=== PATIENT | female | born 1980 | race American Indian/Alaskan Native ===

== ENCOUNTER 2019-11-14 00:58 | Emergency (ER) | payer SELFPAY ==
[2019-11-14 01:11] VITALS: BP 197/85
[2019-11-14 02:07] LABS: BUN/Creatinine Ratio 16; Blood Urea Nitrogen 11 mg/dL (7-17); Calcium 9.2 mg/dL (8.4-10.2); Hemolysis Index 9
[2019-11-14 02:08] LABS: Basophils % (Auto) 0.5 % (0.0-1.8); Eosinophils % (Auto) 0.5 % (0.0-4.3); Hematocrit 33.9 % (30.3-42.9); Hemoglobin 10.9 gm/dl (10.1-14.3); Lymphocytes # (Auto) 2.8 K/mm3 (1.2-5.4); Lymphocytes % (Auto) 35.4 % (13.4-35.0); Mean Corpuscular HGB Conc 32 % (30-34); Mean Corpuscular Volume 81 fl (79-97); Monocytes # (Auto) 0.5 K/mm3 (0.0-0.8); Monocytes % (Auto) 5.9 % (0.0-7.3); Platelet Count 226 K/mm3 (140-440); Red Blood Count 4.19 M/mm3 (3.65-5.03)
[2019-11-14 02:12] LABS: Red Cell Distribution Width 20.7 % (13.2-15.2)
[2019-11-14 02:46] LABS: Bacteria,Urine 1+ /HPF (Negative); Bilirubin,Urine NEG (Negative); Blood,Urine NEG (Negative); Color,Urine Yellow (Yellow); Mucus,Urine 3+ /HPF
[2019-11-14 02:50] LABS: Benzodiazepines Screen,Urine PRESUMPTIVE NEGATIVE; Cannabinoid Screen,Urine PRESUMPTIVE NEGATIVE; Cocaine Screen,Urine PRESUMPTIVE NEGATIVE; Methadone Screen,Urine PRESUMPTIVE NEGATIVE; Opiate Screen,Urine PRESUMPTIVE NEGATIVE
[2019-11-14 03:30] LABS: Amphetamine Screen,Urine PRESUMPTIVE POSITIVE
== END 2019-11-14 02:00 | disposition left against medical advice (07) ==
LOC: ED 00:58
DX: F15.20 Other stimulant dependence, uncomplicated (principal); Z53.21 Procedure and treatment not carried out due to patient leaving prior to being seen by health care provider
CPT/HCPCS: 36415; 80048; 80307; 80320; 81001; 84703; 85025; G0480

== ENCOUNTER 2019-11-14 09:07 | Emergency (ER) | payer SELFPAY ==
[2019-11-14 09:16] VITALS: BP 122/58
--- NOTE | 2019-11-14 09:52 | Emergency Department Report ---
ED General Adult HPI - General Chief complaint: Medical Clearance Stated complaint: DETOX Source: patient Mode of arrival: Ambulatory Limitations: No Limitations - History of Present Illness Initial comments: This is a 39-year-old female that states her last methamphetamine use was 3 days ago. She is a bit guarded about her mental health history. However she was in a partial treatment program 2 years ago she admits. She was prescribed medication for bipolar disorder but is not compliant. She states that she went to an outpatient treatment program and waited 6 hours. Subsequently she was told she would need to go to the emergency department first anyway. That is why she presented earlier. She states that her motivation for going into detox is "to get my son back". Apparently the mother has custody of the son. She states that she needs to complete a 21 day program to get her baby back. She does appear to have pressurized speech. Nursing told me that on repeated questioning regarding suicidal ideation that the patient thought of hurting herself when she lost her baby that today. She states that she is not suicidal now and she's had no persistent thoughts. She states that she's had no history of any suicidal gesture. She denies mental health hospitalization other than the partial treatment program. -: Gradual, days(s) Associated Symptoms: denies other symptoms - Related Data Previous Rx's Medication Instructions Recorded Last Taken Type QUEtiapine [SEROquel] 100 mg PO BID #30 tab 11/14/19 Unknown Rx Allergies Allergy/AdvReac Type Severity Reaction Status Date / Time tramadol Allergy Hives Verified 11/14/19 01:11 ED Review of Systems ROS: Stated complaint: DETOX Other details as noted in HPI Constitutional: denies: chills, fever Eyes: denies: eye pain, eye discharge, vision change ENT: denies: ear pain, throat pain Respiratory: denies: cough, shortness of breath, wheezing Cardiovascular: denies: chest pain, palpitations Endocrine: no symptoms reported Gastrointestinal: denies: abdominal pain, nausea, diarrhea Genitourinary: denies: urgency, dysuria, discharge Musculoskeletal: denies: back pain, joint swelling, arthralgia Skin: denies: rash, lesions Neurological: denies: headache, weakness, paresthesias Psychiatric: other (appears to be somewhat obsessive). denies: anxiety, depression, auditory hallucinations, visual hallucinations, homicidal thoughts, suicidal thoughts (not currently nor recently) Hematological/Lymphatic: denies: easy bleeding, easy bruising ED Past Medical Hx - Past Medical History Previous Medical History?: No - Surgical History Past Surgical History?: Yes Hx Breast Surgery: Yes (reduction) Additional Surgical History: x 2 - Social History Smoking Status: Current Every Day Smoker Substance Use Type: Methamphetamines - Medications Home Medications: Home Medications Medication Instructions Recorded Confirmed Last Taken Type QUEtiapine [SEROquel] 100 mg PO BID #30 tab 11/14/19 Unknown Rx ED Physical Exam - General Limitations: No Limitations General appearance: alert, in no apparent distress - Head Head exam: Present: atraumatic, normocephalic - Eye Eye exam: Present: normal appearance, PERRL, EOMI. Absent: scleral icterus - ENT ENT exam: Present: mucous membranes moist - Neck Neck exam: Present: normal inspection. Absent: tenderness, meningismus - Respiratory Respiratory exam: Present: normal lung sounds bilaterally. Absent: respiratory distress - Cardiovascular Cardiovascular Exam: Present: regular rate, normal rhythm. Absent: systolic murmur, diastolic murmur, rubs, gallop - GI/Abdominal GI/Abdominal exam: Present: soft, normal bowel sounds. Absent: distended, tenderness, guarding, rebound, rigid - Extremities Exam Extremities exam: Present: normal inspection - Back Exam Back exam: Present: normal inspection - Neurological Exam Neurological exam: Present: alert, oriented X3, CN II-XII intact. Absent: motor sensory deficit - Psychiatric Psychiatric exam: Present: manic (somewhat hypomanic, pressured speech). Absent: depressed, agitated, homicidal ideation, suicidal ideation - Skin Skin exam: Present: warm, dry, intact, normal color. Absent: rash ED Course Vital Signs 11/14/19 09:09 Temperature 97.6 F Pulse Rate 73 Respiratory 16 Rate Blood Pressure 122/58 O2 Sat by Pulse 100 Oximetry - Reevaluation(s) Reevaluation #1: Patient did not meet criteria for involuntary confinement. She was seen by the mental health practitioner. 11/14/19 11:29 ED Medical Decision Making - Lab Data Labs reviewed from prior day. The patient is mildly anemic. Otherwise there is no significant laboratory abnormality. Critical care attestation.: If time is entered above; I have spent that time in minutes in the direct care of this critically ill patient, excluding procedure time. ED Disposition Clinical Impression: Medical clearance for psychiatric admission, Methamphetamine abuse Bipolar disorder Qualifiers: Active/Remission status: in partial remission Most recent bipolar episode type: hypomanic Qualified Code(s): F31.71 - Bipolar disorder, in partial remission, most recent episode hypomanic Disposition: DC-01 TO HOME OR SELFCARE Is pt being admited?: No Does the pt Need Aspirin: No Condition: Stable Instructions: Methamphetamine Abuse (ED), Bipolar Disorder (ED), Suicide Prevention for Adults (ED) Additional Instructions: I would recommend that you begin Rx for your bipolar disorder. Follow-up with the [facility]. You are medically clear for an outpatient detox program. You can bring her paperwork there. Prescriptions: QUEtiapine [SEROquel] 100 mg PO BID #30 tab Time of Disposition: 11:27
== END 2019-11-14 12:00 | disposition home or self-care (01) ==
LOC: ED 09:07
DX: F15.10 Other stimulant abuse, uncomplicated (principal); F31.9 Bipolar disorder, unspecified; F17.200 Nicotine dependence, unspecified, uncomplicated; Z98.890 Other specified postprocedural states; Z79.899 Other long term (current) drug therapy; Z88.8 Allergy status to other drugs, medicaments and biological substances